=== PATIENT | male | born 1955 | race Caucasian/White ===

== ENCOUNTER 2017-06-20 05:11 | Inpatient (IN) | payer BC, OTHER ==
[2017-05-22 09:56] VITALS: Ht 170.2 cm; Wt 170.0 kg
--- NOTE | 2017-05-22 10:29 | PAT Medication Instructions ---
Service Date May 22, 2017. Current Home Medication List Fluticasone Propionate (Nasal) (Flonase Allergy Relief), 2 SPRAYS INTNAS PRN Medication Instructions For Your Scheduled Surgery - Hold the following medications the morning of surgery: Fluticasone Propionate (Nasal) (Flonase Allergy Relief), 2 SPRAYS INTNAS PRN - Take the following medications as scheduled the night before surgery: Fluticasone Propionate (Nasal) (Flonase Allergy Relief), 2 SPRAYS INTNAS PRN ( if needed) If you have any questions please call us at [phone] or [phone] or [phone]
[2017-05-22 11:08] LABS: BASO % 0.4 %; BASO ABS # 0.03 K/uL (0-0.2); COMPLETE YES; HEMATOCRIT 45.5 % (42-52); IG% 0.3 %; LYMPH % 23.3 %; LYMPH ABS # 1.65 K/uL (1.2-3.4); MEAN CELL VOLUME 92.1 fL (80-100); MEAN CORPUSCULAR HEMOGLOBIN 31.6 pg (25-34); MEAN CORPUSCULAR HGB CONC 34.3 g/dl (32-36); MEAN PLATELET VOLUME 10.7 fL (7.4-10.4); MONO % 9.3 %; NEUT % 64.7 %; PLATELET COUNT 138 K/uL (130-400); RED BLOOD COUNT 4.94 M/uL (4.7-6.1); WHITE BLOOD COUNT 7.07 K/uL (4.8-10.8)
--- NOTE | 2017-05-22 11:15 | DIAGNOSTIC IMAGING REPORT ---
CHEST PREADMISSION(PA/LAT) HISTORY: 62 years-old Male PAT preoperative exam. No acute chest complaints reported COMPARISON: None available TECHNIQUE: PA and lateral views of the chest. FINDINGS: The cardiomediastinal and hilar silhouettes are within normal limits. There is minimal thickening/linear atelectasis of the minor fissure. No pneumothorax, pleural effusion, focal airspace consolidation or overt pulmonary edema. Multilevel endplate degenerative changes of the spine. Degenerative changes are also seen within the shoulders. IMPRESSION: No acute cardiopulmonary process. The above report was generated using voice recognition software. It may contain grammatical, syntax or spelling errors. Electronically signed by: Danyel Chambers M.D. 05/22/2017 11:14 AM Dictated Date/Time: 05/22/2017 11:12 AM
[2017-05-22 11:21] LABS: PARTIAL THROMBOPLASTIN RATIO 1.1; PROTHROMBIN TIME (PATIENT) 10.5 SECONDS (9.0-12.0)
[2017-05-22 13:26] LABS: BUN/CREATININE RATIO 20.4 (10-20); CREATININE 0.73 mg/dl (0.60-1.40); POTASSIUM 4.1 mmol/L (3.5-5.1)
--- NOTE | 2017-06-16 22:54 | HISTORY & PHYSICAL EXAMINATION ---
DATE OF ADMISSION: 06/20/2017 CHIEF COMPLAINT: Right knee pain, discomfort and instability. 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 He has had on and off knee pain for quite some time. He describes gotten worse over the past year. He did have a work related injury back in July 2016 that seem to make things worse. The pain is mostly on the medial side of his knee. Increased with weightbearing. He has become more debilitated with this and having trouble doing his job. He failed conservative treatment and would like to have his right knee fixed. PAST MEDICAL HISTORY: Significant for sleep apnea. 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 ALLERGIES: None. CURRENT MEDICATIONS: None. SOCIAL HISTORY: A 62-year-old male. He is . 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 He does not smoke. No alcohol use. FAMILY HISTORY: Significant for stomach cancer, colon cancer and breast cancer. REVIEW OF SYSTEMS: Negative for diabetes, neurologic problems, vascular problems, bleeding disorders. Denies any chest pain, no shortness of breath. No history of DVT or PE. No known bleeding problems. PHYSICAL EXAMINATION: GENERAL: Physical examination reveals a healthy, pleasant, middle-aged male. He looks to be in good health. HEENT: Benign. NECK: Supple. No lymphadenopathy. LUNGS: Clear to auscultation. HEART: Regular rate and rhythm. ABDOMEN: Soft, nontender, nondistended. EXTREMITIES: Grossly neurovascularly intact except as follows: Examination of the right knee reveals the patient walks independently. He has varus alignment to his knee. He does limp on the right side. He does have a varus thrust with weightbearing. He has bony hypertrophy medially. Small to moderate sized knee effusion. Range of motion is 5-125. No gross instability. No pain with hip motion. X-RAYS: X-rays of the right knee reviewed. It shows advanced right knee DJD. He has complete loss of his medial joint space. He has some tibial femoral subluxation. 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 He has failed conservative treatment and would like to have his right knee replaced. He is not interested in any further conservative care. PLAN: We are going to take him to the operating room and do a right total knee replacement. The risks and benefits of this procedure were explained to the patient including but not limited to DVT, PE, , infection, neurological injury, vascular injury, bleeding problem, pain, limited range of motion, stiffness, failure to relieve symptoms, incomplete relief of symptoms, need for further surgery in the future, fracture, leg length inequality, nerve palsy, persistent pain, etc. The patient understands and desires to proceed. Informed consent was obtained. As far as discharge plans, he is planning to be discharged to home using [facility] home health program.
[~2017-06-20] VITALS: Ht 170.2 cm; Wt 170.0 kg
[2017-06-20] VITALS (9 sets, daily range): BP systolic 100–146; BP diastolic 62–82; PULSE 53–65; TEMP 36.4–36.7; O2SAT 96–100
[~2017-06-20 05:11] MED LIST: FLUT0.15 INTNAS
[2017-06-20] MEDS ORDERED: LACTATED RINGER'S 1000ML IV SCH ×2 (06:00)
[2017-06-20] MEDS ORDERED: METOCLOPRAMIDE HCL 10 MG TAB PO SCH (06:00)
[2017-06-20] MEDS ORDERED: ACETAMINOPHEN 500 MG TAB PO SCH (06:00)
[2017-06-20] MEDS ORDERED: GABAPENTIN 300 MG CAP PO SCH (06:00)
[2017-06-20] MEDS ORDERED: SCOPOLAMINE 1.5 MG TDSY TD SCH (06:00)
[2017-06-20] MEDS ORDERED: LACTATED RINGER'S 500 ML IV SCH (06:00)
[2017-06-20] MEDS ORDERED: CEFAZOLIN 2000MG IV PUSH 10 ML IV SCH (06:00)
[2017-06-20] MEDS ORDERED: TRANEXAMIC ACID INJ 1,000 MG in SYRINGE 0 ML IV SCH (06:00)
[2017-06-20] MEDS ORDERED: FAMOTIDINE 20 MG TAB PO SCH (06:00)
[2017-06-20] MEDS ORDERED: BUPIVACAINE LIPOSOME 266 MG, BUPIVACAINE/EPINEPHRINE INJ 50 ML, SODIUM CHLORIDE 0.9% PF... INFIL SCH ×3 (06:00)
--- NOTE | 2017-06-20 06:27 | History & Physical Bridge Note ---
H&P Re-Evaluation Bridge Note: I have examined the patient, reviewed the History & Physical and in the interval since the performance of the History & Physical I have noted the following changes of clinical significance: No changes noted
[2017-06-20] MEDS ORDERED: BUPIVACAINE 0.5 % 5 MG/1 ML PF 10ML VIAL ONE (06:33)
[2017-06-20] MEDS ORDERED: BUPIVACAINE 0.25% 30 ML VIAL ONE (06:33)
[2017-06-20] MEDS ORDERED: BACITRACIN 50000 UNIT VIAL ONE (06:34)
[2017-06-20] MEDS ORDERED: EpINEphrine INJ 1MG/ML AMP 1 MG/ML AMP ONE (06:34)
[2017-06-20] MEDS ORDERED: BUPIVACAINE/EPINEPHRINE 0.25% 1:200,000 30 ML VIAL ONE (06:34)
[2017-06-20] MEDS ORDERED: SODIUM CHLORIDE 0.9% PF 50 ML VIAL ONE (06:34)
[2017-06-20] MEDS ORDERED: BUPIVACAINE LIPOSOME 1/3% 266 MG/20 ML VIAL INFIL ONE (06:34)
[2017-06-20] MEDS ORDERED: DEXAMETHASONE SOD INJ 4 MG/ML VIAL ONE ×2 (06:34→07:52)
[2017-06-20] MEDS ORDERED: MIDAZOLAM HCL 1 MG/ML 2ML VIAL ONE (06:43)
[2017-06-20] MEDS ORDERED: FENTANYL CITRATE INJ 50 MCG/1 ML 2 ML VIAL ONE (06:43)
[2017-06-20] MEDS ORDERED: PROPOFOL IV EMULSION 10 MG/ML 20 ML VIAL IV ONE (07:52)
[2017-06-20] MEDS ORDERED: ONDANSETRON INJ 2 MG/ML 2 ML VIAL ONE (07:52)
[2017-06-20] MEDS ORDERED: FENTANYL CITRATE INJ 50 MCG/1 ML 2 ML VIAL IV PRN (08:00)
[2017-06-20] MEDS ORDERED: ATROPINE SULFATE 0.1 MG/ML 5ML SYR IV PRN (08:00)
[2017-06-20] MEDS ORDERED: EpHEDrine SULFATE INJ 50 MG/ML AMP IV PRN (08:00)
[2017-06-20] MEDS ORDERED: ONDANSETRON INJ 2 MG/ML 2 ML VIAL IV PRN ×2 (08:00→08:45)
--- NOTE | 2017-06-20 08:39 | [facility] Post Operative Brief Note ---
Immediate Operative Summary Operative Date Jun 20, 2017. Pre-Operative Diagnosis Advanced Right Knee Degenerative Joint Disease Post-Operative Diagnosis Advanced Right Knee Degenerative Joint Disease Procedure(s) Performed Right Total Knee Arthroplasty Surgeon Dr. Dunn Business Services Specialist Sales Surgeon(s) ELA Nunez Estimated Blood Loss 50 ml Findings Right Knee DJD Fluids (cc crystalloids) 1500 cc Specimens A. Right Knee Bone and Tissue Drains None Anesthesia Spinal Complication(s) None Disposition Recovery Room / PACU
[2017-06-20] MEDS ORDERED: DiphenhydrAMINE HCL 50 MG/ML VIAL IV PRN (08:45)
[2017-06-20] MEDS ORDERED: ZOLPIDEM TARTRATE 5 MG TAB PO PRN (08:45)
[2017-06-20] MEDS ORDERED: MoRPHine SULFATE 2 MG/ML CARP IV PRN (08:45)
[2017-06-20] MEDS ORDERED: TAMSULOSIN HCL 0.4 MG CAP PO PRN (08:45)
[2017-06-20] MEDS ORDERED: SILVER SULFADIAZINE 1% CR 50 GM JAR EXT PRN (08:45)
[2017-06-20] MEDS ORDERED: METOCLOPRAMIDE HCL INJ 5 MG/ML 2 ML VIAL IV PRN (08:45)
[2017-06-20] MEDS ORDERED: MAGNESIUM HYDROXIDE SUSP 30 ML UDC PO PRN (08:45)
[2017-06-20] MEDS ORDERED: BISACODYL 10 MG SUPP PR PRN (08:45)
[2017-06-20] MEDS ORDERED: FLUTICASONE PROPIONATE NA SPR 16 GM BTL PRN (08:45)
[2017-06-20] MEDS ORDERED: ALUMINUM/MAGNESIUM/SIMETH (MAALOX MAX) 30 ML UDC PO PRN (08:45)
--- NOTE | 2017-06-20 09:12 | OPERATIVE REPORT ---
DATE OF OPERATION: 06/20/2017 SURGEON: Dr. Art Dunn. ASPHALT MACHINE OPERATOR: ELA Adame PREOPERATIVE DIAGNOSIS: Right knee degenerative joint disease. POSTOPERATIVE DIAGNOSIS: Same. PROCEDURE PERFORMED: Right cemented posterior stabilized total knee arthroplasty. COMPLICATIONS: None. ESTIMATED BLOOD LOSS: 50 mL FLUID REPLACEMENT: 1500 mL crystalloid fluid replacement. TOURNIQUET TIME: 57 minutes at 300 mmHg. ANESTHESIA: Spinal with adductor canal block. DRAINS: None. SPECIMENS: Right knee sent for pathology. 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 He has had a very long history of right knee pain and discomfort. This kind of waxed and waned, but became more persistent and progressive over time to the point that he is having difficulty doing his job. X-rays revealed advanced medial compartment DJD. The patient elected to proceed with operative treatment. OPERATIVE FINDINGS: Operative findings revealed advanced right knee DJD. He had extensive grade 4 changes in the medial femoral condyle and posteromedial tibial plateau. He had 1/4 bit of tibial plateau posteriorly. He had a moderate-sized joint effusion and a fixed varus deformity to his knee. He had some moderate patellofemoral disease, grade 3. He did have some grade 4 areas of the lateral femoral condyle from the tibial femoral subluxation where the intercondylar notch was rubbing into the condyle. OPERATIVE IMPLANTS: Operative implants consisted of: 1. Biomet Vanguard size 70 right posterior stabilized femoral component. 2. Biomet size 71 tibial tray. 3. A 14-mm posterior stabilized polyethylene insert. 4. A 31 x 8 all poly patella. OPERATIVE PROCEDURE: The patient taken to the operating room, identified and placed on the operating table in supine position. All contact areas were appropriately padded. IV antibiotics were provided by the anesthesia team. A spinal anesthetic and adductor canal block had been provided in the holding area. Meyer catheter was placed in sterile fashion. A right thigh tourniquet was then placed and the right lower extremity was then prepped and draped in the usual sterile fashion. The right leg was elevated and exsanguinated with Esmarch and tourniquet was placed at 300 mmHg. An anterior approach to the right knee was then performed through a longitudinal incision centered over the patella. Sharp dissection was carried out through the subcutaneous tissues down to the level of the extensor mechanism. A medial parapatellar arthrotomy incision was made. Some subperiosteal dissection was carried out medially. I did do quite a bit of stripping on the medial and posteromedial tibia due to his varus deformity. The fat pad was resected from beneath the patellar tendon. The lateral patellofemoral ligament was released and the knee was flexed. The osteophytes were taken off the distal femur. The ACL was chronically absent. The PCL was released from the distal femur. The tibia subluxated anteriorly. The external tibial alignment jig was then placed in the anterior face of the tibia and adjusted 16 mm medially. Proximal tibial cut was made to remove about a millimeter of bone from the most deficient aspect of the posteromedial tibial plateau. There was a large cyst in the tibia. We curetted this out. The tibia was sized to a size 71. Some osteophytes were taken off medial and posteromedially. Attention was then drawn to the femur. The distal femur was entered with a sharp drill bit. Intramedullary canal was suctioned. A right 6 degree valgus cutting guide was placed. Distal femoral cutting block was pinned in place. Distal femoral cut was made to take an additional 3 mm of bone off the distal femur. The femur was then sized to a size 70. We did downsize this almost 1 size. The AP cutting block was pinned parallel to the epicondylar axis, which was 3 degrees of external rotation. The anterior cut, anterior chamfer, posterior cut, posterior chamfer cuts were made. Box cutting guide was placed and adjusted slightly lateral and the box cut was made. The knee was flexed. The remnants of the medial and lateral menisci were excised. The osteophytes were taken off the posterior aspect of the femur. Trial femoral component was placed. Tibial tray was pinned in maximum external rotation and the drill and stem punch were used to create defect in proximal tibia for the tibial tray. The knee was then trialed and the 14-mm insert fit most appropriately. Attention was then drawn to the patella. The patella was cleaned of all soft tissues. Patellar thickness measured 24 mm, cut down to 14. It was sized to a size 31 patella. Lug holes were drilled for the 31 patella. Lateral osteophyte was removed. Patella button was placed. Knee was taken through range of motion and patella tracked nicely with no thumbs test. Attention was then drawn toward placement of the permanent component. All trial components were removed. A bone plug was placed in the distal femur to limit blood loss. A double batch of Palacos G cement was mixed. A right size 70 posterior stabilized femoral component, size 71 tibial tray, a 14 mm posterior stabilized polyethylene insert, and a 31 x 8 all poly patella were then cemented in place. Knee was brought out into full extension until cement hardened. A final cement check was then performed. Pericapsular tissues were injected with a total of 100 mL of a combination of 20 mL of Exparel, 30 mL of normal saline, 50 mL of 0.25% Marcaine with epinephrine. The patient did receive 1 gram of tranexamic acid. The tourniquet was then let down for a tourniquet time of 57 minutes. Hemostasis was assured with use of electrocautery. The wound was once again irrigated. The extensor mechanism was then closed with a combination of #1 PDS suture and #1 Vicryl suture in a [id number] fashion. Extensor mechanism was checked and found to be intact. The subcutaneous tissues were then closed with 2-0 Dexon suture in buried interrupted fashion. Skin was closed skin javier. Leg was then cleaned and dried and a sterile dressing of Xeroform, 4 x 4, sterile cast padding and Sebastian bandage were applied. The patient then transferred to the recovery room in stable condition. The patient tolerated the procedure with no complications. All needle and sponge counts were correct at the end of the operation. I attest to the content of the Intraoperative Record and any orders documented therein. Any exception s are noted below.
--- NOTE | 2017-06-20 09:18 | DIAGNOSTIC IMAGING REPORT ---
R KNEE 1 OR 2 VIEWS ROUTINE HISTORY: 62 years-old Male AP/LATERAL IN PACU RIGHT KNEE status post right knee total joint arthroplasty. Degenerative joint disease. COMPARISON: Bilateral knee radiographs 07/20/2016 TECHNIQUE: 2 views of the right knee. FINDINGS: Postoperative changes compatible with recent right knee total joint arthroplasty and patella resurfacing. Anterior midline skin javier are noted as well as expected postsurgical soft tissue swelling and deep tissue air with surgical drain. No acute fracture or dislocation. No postoperative complication identified. Alignment is satisfactory. IMPRESSION: Status post right knee total joint arthroplasty and patellar resurfacing without complication identified. The above report was generated using voice recognition software. It may contain grammatical, syntax or spelling errors. Electronically signed by: Danyel Chambers M.D. 06/20/2017 9:16 AM Dictated Date/Time: 06/20/2017 9:15 AM
--- NOTE | 2017-06-20 09:42 | Anesthesiology Progress Note ---
Anesthesia Post Op Note Date & Time Jun 20, 2017 at 09:41 Vital Signs Pain Intensity: 0 Vital Signs Past 12 Hours Date Time Temp Pulse Resp B/P (MAP) Pulse Ox O2 Delivery O2 Flow Rate FiO2 06/20/17 09:30 54 12 99/60 (65) 99 Nasal Cannula 2 06/20/17 09:20 56 13 99/59 (67) 97 Nasal Cannula 2 06/20/17 09:10 62 20 102/59 100 Nasal Cannula 2 06/20/17 09:00 52 13 103/60 100 Nasal Cannula 2 06/20/17 08:50 54 12 102/56 99 Nasal Cannula 2 06/20/17 08:44 36.7 58 12 98/50 (55) 99 Nasal Cannula 2 06/20/17 05:53 36.7 57 18 128/82 98 Room Air Notes Mental Status: alert / awake / arousable, participated in evaluation Pt Amnestic to Procedure: Yes Nausea / Vomiting: adequately controlled Pain: adequately controlled Airway Patency, RR, SpO2: stable & adequate BP & HR: stable & adequate Hydration State: stable & adequate Neuraxial Anesthesia: was administered, sensory block is resolving Anesthetic Complications: no major complications apparent
[2017-06-20] MEDS: D5W AND 1/2NSS + 20MEQ KCL 1,000 ML IV SCH ×2 (11:11→21:26)
[2017-06-20] MEDS: TAPENTADOL ER 50 MG TABCR PO SCH ×2 (11:13→21:25)
[2017-06-20] MEDS: KETOROLAC TROMETHAMINE 30 MG/ML VIAL IV. SCH ×3 (11:14→23:41)
[2017-06-20] MEDS: FERROUS GLUCONATE 324 MG TAB PO SCH ×2 (12:49→17:53)
[2017-06-20] MEDS: OXYCODONE HCL IR 5 MG TAB (IMMEDIATE RELEASE) PO PRN (12:55)
--- NOTE | 2017-06-20 13:46 | PROGRESS NOTE ---
DATE: 06/20/2017 DATE: 06/20/2017 SUBJECTIVE: A 62-year-old gentleman postop from a right knee replacement. He is doing pretty well. Just starting to get pain and feeling back in his leg. Denies any chest pain or shortness of breath. Not feeling dizzy or lightheaded. OBJECTIVE: VITAL SIGNS: Temperature is 36.7. Vital signs stable. PHYSICAL EXAMINATION: GENERAL: Reveals a pleasant, middle-aged male. He is lying in bed and talking to his spouse and looks pretty comfortable. LUNGS: Clear to auscultation. HEART: Regular rate and rhythm. ABDOMEN: Soft, nontender, nondistended. EXTREMITY EXAMINATION: Grossly neurovascularly intact except as follows: Examination of the right leg reveals the leg to be well aligned. Dressing is clean, dry, and intact. He is able to slightly dorsiflex and plantar flex his foot with strengthening about 1-2 motor strength with extension and probably 2-3 with plantarflexion. He has got brisk refill. X-RAYS: X-rays of the right knee from today are reviewed. It shows a cemented posterior stabilized total knee arthroplasty. The components looked to be in good position. No signs of problems. ASSESSMENT: A 62-year-old gentleman postop from a right knee replacement, doing pretty well. Pain is controlled. His nerve function is just returning. He has a bit weak, but seems to be returning. PLAN: 1. DVT prophylaxis including thigh-high TEDs, SCDs, and aspirin twice a day. 2. PT/OT. Weightbearing as tolerated. Right total knee protocol. 3. Pain control. Doing pretty well with current pain regimen. 4. Disposition. Plan is to discharge him to home with some home health once adequately recovered. 5. IV antibiotics x24 hours.
[2017-06-20] MEDS: CEFAZOLIN IV 2,000 MG in SYRINGE 0 ML IV SCH ×2 (13:54→21:25)
[2017-06-20] MEDS: ACETAMINOPHEN 500 MG TAB PO SCH ×2 (13:55→21:25)
[2017-06-20] MEDS ORDERED: TRANEXAMIC ACID INJ 1,000 MG in SODIUM CHLORIDE 0.9% 100ML 100 ML IV SCH (14:00)
[2017-06-20] MEDS: CHECK SCOPOLAMINE PATCH PLACEMENT SCH ×2 (15:53→23:41)
[2017-06-20] MEDS: DOCUSATE SODIUM 100 MG CAP PO SCH (21:25)
[2017-06-20] MEDS: SENNA 8.6 MG TAB PO SCH (21:25)
[2017-06-20] MEDS: ASPIRIN 325 MG ECTAB PO SCH (21:25)
[2017-06-21] VITALS (7 sets, daily range): BP systolic 103–130; BP diastolic 63–82; PULSE 59–74; TEMP 36.4–37.1; O2SAT 96–98
[2017-06-21] MEDS: D5W AND 1/2NSS + 20MEQ KCL 1,000 ML IV SCH (06:08)
[2017-06-21] MEDS: ACETAMINOPHEN 500 MG TAB PO SCH ×3 (06:08→22:22)
[2017-06-21] MEDS: KETOROLAC TROMETHAMINE 30 MG/ML VIAL IV. SCH ×3 (06:08→18:08)
[2017-06-21 06:33] LABS: HEMATOCRIT 37.6 % (42-52); MEAN CELL VOLUME 92.6 fL (80-100); MEAN CORPUSCULAR HEMOGLOBIN 30.5 pg (25-34); MEAN PLATELET VOLUME 10.5 fL (7.4-10.4); PLATELET COUNT 123 K/uL (130-400); RED BLOOD COUNT 4.06 M/uL (4.7-6.1); WHITE BLOOD COUNT 13.21 K/uL (4.8-10.8)
[2017-06-21 07:05] LABS: BUN/CREATININE RATIO 11.4 (10-20); CALCIUM 8.2 mg/dl (8.5-10.1); CREATININE 0.76 mg/dl (0.60-1.40); POTASSIUM 3.9 mmol/L (3.5-5.1)
[2017-06-21] MEDS: CHECK SCOPOLAMINE PATCH PLACEMENT SCH ×2 (08:05→16:25)
[2017-06-21] MEDS: DOCUSATE SODIUM 100 MG CAP PO SCH ×2 (08:37→21:21)
[2017-06-21] MEDS: FERROUS GLUCONATE 324 MG TAB PO SCH ×3 (08:37→17:47)
[2017-06-21] MEDS: ASPIRIN 325 MG ECTAB PO SCH ×2 (08:38→21:21)
[2017-06-21] MEDS: MULTIVITAMIN TAB PO SCH (08:38)
[2017-06-21] MEDS: PANTOprazole SOD 40 MG TAB PO SCH (08:38)
[2017-06-21] MEDS: TAPENTADOL ER 50 MG TABCR PO SCH ×2 (08:38→21:20)
[2017-06-21] MEDS: OXYCODONE HCL IR 5 MG TAB (IMMEDIATE RELEASE) PO PRN ×2 (08:40→17:47)
--- NOTE | 2017-06-21 09:17 | Clinical Documentation Query ---
His BMI IS NOT 58.7!!!!!! 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 Patient has a BMI of 58.7. In order for coders to capture the BMI, obesity must be documented in the patient record. In your clinical opinion is this patient being managed for: ( ) Obesity ( x ) Not Agree ( ) Other explanation of clinical findings (Please Explain) ( ) Unable to determine (Please Define) ( ) Need to Discuss The medical record reflects the following clinical findings, treatment, and risk factors. Clinical Indicators: BMI 58.7 Treatment: Diet, I&O Risk Factors: S/P surgical intervention, ambulation Please clarify and document your clinical opinion in the progress notes and discharge summary. Terms such as "probable", "suspected", "likely", "questionable", "possible", or "still to be ruled out" are acceptable. IF IN AGREEMENT, YOU MUST DOCUMENT ABOVE DIAGNOSTIC STATEMENT IN DAILY PROGRESS NOTES AND DISCHARGE SUMMARY. This document is not part of the patient's record. Thank You, Donna Guerrero RN [phone]
--- NOTE | 2017-06-21 13:09 | PROGRESS NOTE ---
DATE: 06/21/2017 SUBJECTIVE: This is a 62-year-old gentleman postop from a right knee replacement. He is doing pretty well. It is painful, but manageable. No chest pain or shortness of breath. Not feeling dizzy or lightheaded. OBJECTIVE: VITAL SIGNS: Temperature 36.6. Vital signs stable. GENERAL: Reveals a healthy, pleasant, middle-aged male. He was walking to the bathroom when I visited him this morning. LUNGS: Clear to auscultation. HEART: Regular rate and rhythm. ABDOMEN: Soft, nontender, nondistended. EXTREMITIES: Grossly neurovascularly intact except as follows. Examination of the right lower extremity reveals the dressing to be clean, dry, and intact. He can dorsiflex and plantarflex his foot appropriately. He is neurologically intact. LABORATORY DATA: Hemoglobin is 12.4. Hematocrit 37.6. White cell count 13.21. ASSESSMENT: A 62-year-old gentleman postop day 1 from right knee replacement, doing pretty well. Pain is adequately controlled. PLAN: 1. DVT prophylaxis including thigh-high TEDs, SCDs, and aspirin twice a day. 2. PT/OT. Weightbearing as tolerated. Right total knee protocol. 3. Pain control, doing pretty well with current pain regimen. 4. Disposition: Plan to discharge to home likely with some home health once adequately recovered.
--- NOTE | 2017-06-21 14:17 | Anesthesiology Progress Note ---
Anesthesia Post Op Note Date & Time Jun 21, 2017 at 14:16 Vital Signs Vital Signs Past 12 Hours Date Time Temp Pulse Resp B/P (MAP) Pulse Ox O2 Delivery O2 Flow Rate FiO2 06/21/17 11:29 36.6 62 18 122/68 (86) 98 Room Air 06/21/17 11:06 59 06/21/17 08:19 98 Room Air 06/21/17 07:45 36.4 61 19 130/82 (98) 98 Room Air 06/21/17 07:10 Room Air 06/21/17 03:55 36.9 74 18 103/64 (77) 97 Room Air Notes Mental Status: alert / awake / arousable, participated in evaluation Pt Amnestic to Procedure: Yes Nausea / Vomiting: adequately controlled Pain: adequately controlled Airway Patency, RR, SpO2: stable & adequate BP & HR: stable & adequate Hydration State: stable & adequate Neuraxial Anesthesia: was administered, sensory block resolved Anesthetic Complications: no major complications apparent
[2017-06-21] MEDS ORDERED: ACET-24 PO (16:48)
[2017-06-21] MEDS ORDERED: RXC5 PO (16:48)
[2017-06-21] MEDS ORDERED: ASPEC325 PO (16:48)
--- NOTE | 2017-06-21 16:51 | Discharge Instructions ---
Discharge Instructions Date of Service Jun 21, 2017. Admission Reason for Admission: Right Knee Degenerative Joint Disease Discharge Discharge Diagnosis / Problem: Right Knee Replacement Discharge Goals Goal(s): Decrease discomfort, Improve function, Increase independence, Improve disease control, Therapeutic intervention Activity Recommendations Activity Limitations: per Instructions/Follow-up section Weightbearing Status: Right weightbearing . Instructions / Follow-Up Instructions / Follow-Up ACTIVITY RECOMMENDATIONS: Physical Therapy: * You will go to physical therapy three times each week for four to six weeks after your surgery in order to regain your knee range of motion and to retrain your knee to work properly. * It is just as important to make sure you are getting your knee perfectly straight as it is to regain your knee bend. * Taking a pain pill an hour before therapy can help you have a more productive and comfortable therapy session. Home Exercise: * You were shown a series of exercises (heel props, heel slides, etc.) in the hospital. Do these exercises three to four times each day including the exercises you were shown in physical therapy. Walking: * Get up and walk several times each day. For the first four weeks, try not to stand or walk for more than one hour at a time. If you do stand or walk for more than one hour, you will not hurt anything, but your knee and leg will likely swell. * As you feel comfortable, you may change from the walker or crutches to a cane and then to independent walking. MEDICATIONS: New Medicine: * You will likely be taking one or more of these medications: 1. Oxycodone - A quick and shorter-acting pain medication. Take one to two tablets every four to six hours to lessen your pain. 2. Aspirin - Thins your blood to lessen the chance of forming a blood clot. * The most common side effects of pain medicine and iron are nausea and constipation. If nausea or constipation is too much of a problem or if you have any questions about your new medicines or doses, call [facility] at . We will try to help you manage these issues. VERY IMPORTANT TO READ AND REVIEW" Pain: * The immediate post-operative period after knee replacement surgery is often quite painful. * You are given a prescription for pain medicine. You should take it, as directed, when you need it, especially before physical therapy and before going to bed. Pain that interferes with sleep is very common and can last several months. * You will likely need pain medicine for the first four to six weeks. It will not stop all of the pain. The pain will lessen and as you feel better, you may change to milder pain medicine such as Tylenol. * The most common side effects of pain medicine are nausea and constipation, so don't take more than you need. SPECIAL CARE INSTRUCTIONS: TEDs/Elastic Stockings: * The white elastic stockings help limit swelling and prevent blood clots from forming in your legs. The more you wear them, the more they work. * Wear them for six weeks after knee replacement surgery and four weeks after partial knee replacement. Prevention of Infection: * Take antibiotics one hour before any dental cleaning, dental work, urological procedure, gastrointestinal procedure or any invasive surgery in order to prevent your new joint from getting infected. * You may get the antibiotics from the doctor performing the procedure or you may call our office at before and we will call in a prescription to the pharmacy of your choice. Things to Watch For: * Drainage from the incision site that occurs more than one week after your surgery. * Severely increased knee/leg pain or swelling. * Increased redness at the incision site. * Fever above 102 degrees Fahrenheit. * Unusual chest pain or shortness of breath. * Unusual pain or burning with urination. Call [facility] at with any of the above problems or if you have any questions about your medicines or recovery. FOLLOW UP VISIT: Make an appointment to see your doctor for approximately two weeks after surgery for a progress check and staple removal by calling the office at . Current Hospital Diet Patient's current hospital diet: Regular Diet Discharge Diet Recommended Diet: Regular Diet Procedures Procedures Performed: Right Total Knee Arthroplasty Pending Studies Studies pending at discharge: no Medical Emergencies . Who to Call and When: Medical Emergencies: If at any time you feel your situation is an emergency, please call [phone] immediately. . Non-Emergent Contact Non-Emergency issues call your: Surgeon . "Provider Documentation" section prepared by Art Dunn. . VTE Core Measure Inpt VTE Proph given/why not?: Other Anticoagulation, T.E.D. Stockings, SCD's
[2017-06-21] MEDS: SENNA 8.6 MG TAB PO SCH (21:20)
[2017-06-22] MEDS: KETOROLAC TROMETHAMINE 30 MG/ML VIAL IV. SCH ×2 (00:38→05:34)
[2017-06-22] MEDS: OXYCODONE HCL IR 5 MG TAB (IMMEDIATE RELEASE) PO PRN ×3 (00:54→12:43)
[2017-06-22] MEDS: ACETAMINOPHEN 500 MG TAB PO SCH ×2 (05:35→13:35)
[2017-06-22 06:31] VITALS: BP 122/80; PULSE 77; TEMP 36.8; O2SAT 98
[2017-06-22] MEDS: CHECK SCOPOLAMINE PATCH PLACEMENT SCH ×2 (07:12)
[2017-06-22] MEDS: ASPIRIN 325 MG ECTAB PO SCH (07:25)
[2017-06-22] MEDS: PANTOprazole SOD 40 MG TAB PO SCH (07:25)
[2017-06-22] MEDS: FERROUS GLUCONATE 324 MG TAB PO SCH ×2 (07:25→12:42)
[2017-06-22] MEDS: DOCUSATE SODIUM 100 MG CAP PO SCH (07:25)
[2017-06-22] MEDS: MULTIVITAMIN TAB PO SCH (07:25)
[2017-06-22] MEDS: TAPENTADOL ER 50 MG TABCR PO SCH (07:26)
--- NOTE | 2017-06-22 07:59 | PROGRESS NOTE ---
DATE: 06/22/2017 DATE: 06/22/2017 SUBJECTIVE: A 62-year-old gentleman postop day 2 from right knee replacement. He is doing pretty well. Pain seems to be better this morning. No chest pain or shortness of breath. Not feeling dizzy or lightheaded. OBJECTIVE: VITAL SIGNS: Temperature 36.8. Vital signs stable. PHYSICAL EXAMINATION: GENERAL: Reveals a pleasant, middle-aged male. He is sitting up in her bedside chair eating breakfast. Looks pretty comfortable. EXTREMITIES: Examination of the right leg reveals the dressing to be clean, dry and intact. No significant drainage. Calf is soft and supple. He is neurologically intact. ASSESSMENT: A 62-year-old gentleman postop day 2 from right knee replacement, doing pretty well. Pain seems to be a bit better today. PLAN: 1. DVT prophylaxis including thigh-high TEDs, SCDs, and aspirin twice a day. 2. PT/OT. Weight bear as tolerated. Right total knee protocol. 3. Pain control. Doing pretty well with current pain regimen. 4. Disposition. Plan to discharge to home with some home health later today.
[2017-06-22 10:21] VITALS: BP 122/80; PULSE 77; TEMP 36.8; O2SAT 98
--- NOTE | 2017-06-26 17:21 | DISCHARGE SUMMARY ---
ADMITTING PHYSICIAN AND SURGEON: Dr. Dunn. ADMITTING DIAGNOSIS: Right knee degenerative joint disease. SURGERY PERFORMED: Right total knee arthroplasty. SECONDARY DIAGNOSIS: Sleep apnea. CONSULTS: None obtained. HISTORY AND PHYSICAL EXAMINATION: Well documented in the patient's chart. HOSPITAL COURSE: The patient was admitted on 06/20/2017 and underwent total knee arthroplasty. He tolerated the procedure well. There were no complications. He was transferred to the PACU postoperatively and later to the orthopedic floor for further care. He was given Ancef for antibiotic prophylaxis and MARGAUX stockings, SCDs and aspirin for DVT prophylaxis. Hemoglobin, hematocrit and vital signs were monitored during his hospital stay and remained stable. He did not require any blood transfusions. There were no complications. By postoperative day #2, he was tolerating a regular diet. Pain was controlled with oral pain medicine. He was participating in physical therapy and had no signs or symptoms of deep vein thrombosis. On postoperative day #2, he was discharged home and set up with home health services. He was given printed discharge instructions including new prescriptions for extra strength Tylenol, aspirin 325 mg b.i.d. and oxycodone. Continue his home medications, continue physical therapy, and weightbearing as tolerated. MARGAUX stockings and follow up in 10-12 days or sooner if there are any problems or concerns.
== END 2017-06-22 14:01 | disposition home health service (06) | DRG 470 ==
LOC: C.ACU 05:11 → C.3E 06:10 → ENRESERV 09:45
PROVIDERS: ADMIT Orthopaedic Surgery Sports Medicine; ATTEND Orthopaedic Surgery Sports Medicine
PROC: 0SRC0J9 Replacement of Right Knee Joint with Synthetic Substitute, Cemented, Open Approach (ICD-10-PCS; principal; 2017-06-20 07:00)
DX: M17.11 Unilateral primary osteoarthritis, right knee (principal); Z80.0 Family history of malignant neoplasm of digestive organs; Z80.3 Family history of malignant neoplasm of breast

== ENCOUNTER 2024-10-07 08:45 | Observation (INO) ==
--- NOTE | 2024-09-04 15:44 | PAT Medication Instructions ---
Medication Instructions Date of Service September 04, 2024 Home Medications amoxicillin 500 mg capsule 2,000 mg PO UD PRN dental procedures fluticasone propionate 50 mcg/actuation nasal spray,suspension 1 spray intranasal UD PRN congestion/allergy symptoms flaxseed oil 1,000 mg capsule 0 mg PO DAILY glycerin 1 drp ophthalmic (eye) UD PRN Dry Eyes multivitamin 1 tab PO DAILY Continue as directed amoxicillin 500 mg capsule 2,000 mg PO UD PRN dental procedures STOP taking 2 weeks before surgery (or as soon as possible if surgery is within 2 weeks) flaxseed oil 1,000 mg capsule 0 mg PO DAILY DO NOT take the morning of surgery multivitamin 1 tab PO DAILY Take morning of surgery With a small sip of water, OTHERWISE NOTHING TO EAT OR DRINK AFTER MIDNIGHT: fluticasone propionate 50 mcg/actuation nasal spray,suspension 1 spray intranasal UD PRN congestion/allergy symptoms (if needed) glycerin 1 drp ophthalmic (eye) UD PRN Dry Eyes (if needed) Take evening before surgery fluticasone propionate 50 mcg/actuation nasal spray,suspension 1 spray intranasal UD PRN congestion/allergy symptoms (if needed) glycerin 1 drp ophthalmic (eye) UD PRN Dry Eyes (if needed) Other Notes If you have any questions please call us at [phone] or [phone] or [phone] or [phone]
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
[~2024-10-07 08:45] MED LIST changes: -FLUT0.15 INTNAS; +ROPIVACAINE 0.5% 5 MG/ML 30 ML VIAL ONE
--- NOTE | 2024-10-07 08:55 | History & Physical Bridge Note ---
Date of Service October 07, 2024 History & Physical Bridge Note I have examined the patient, reviewed the History & Physical and in the interval since the performance of the History & Physical I have noted the following changes of clinical significance: no changes noted
[2024-10-07] MEDS: LR 60ML/HR IV SCH (09:36)
[2024-10-07] MEDS: LR 500ML BOLUS, THEN 15ML/HR IV SCH (09:36)
[2024-10-07] MEDS: ACETAMINOPHEN 500 MG TAB PO SCH ×2 (09:37→17:12)
[2024-10-07] MEDS: CeleBREX 200 MG CAP PO SCH (09:37)
[2024-10-07] MEDS: METOCLOPRAMIDE HCL 10 MG TABLET PO SCH (09:38)
[2024-10-07] MEDS: dexAMETHasone**PF** 10 MG/ML VIAL IV SCH (09:38)
[2024-10-07] MEDS: FAMOTIDINE 20 MG TAB PO SCH (09:38)
[2024-10-07] MEDS ORDERED: fentaNYL citrate PF 100 MCG/2 ML VIAL ONE (09:47)
[2024-10-07] MEDS ORDERED: MIDAZOLAM HCL 1 MG/ML 2ML VIAL ONE (09:47)
[2024-10-07] MEDS ORDERED: PROPOFOL IV EMULSION 10 MG/ML 100 ML VIAL IV ONE ×2 (09:57)
[2024-10-07] MEDS ORDERED: PROPOFOL IV EMULSION 10 MG/ML 20 ML VIAL IV ONE ×3 (09:58→12:50)
[2024-10-07] MEDS ORDERED: ePHEDrine sulfate 50 MG/ML AMP IV PRN (10:14)
[2024-10-07] MEDS ORDERED: HYDROmorphone INJ 1 MG/ML SYRINGE IV PRN (10:14)
[2024-10-07] MEDS ORDERED: KETOROLAC 30 MG/ML VIAL IV PRN (10:14)
[2024-10-07] MEDS ORDERED: ATROPINE SULFATE 0.1 MG/ML 10ML SYR IV PRN (10:14)
[2024-10-07] MEDS: ceFAZolin 2000MG 2,000 MG/15 ML SYR IV SCH ×2 (11:42→20:22)
[2024-10-07] MEDS ORDERED: KETAMINE HCL 10MG/ML SYR ONE (11:47)
[2024-10-07] MEDS: ROPIV 0.5% 246mg, Ketorolac 30mg, EPINEPHrine 0.5mg in NSS INFIL SCH (12:15)
[2024-10-07] MEDS: ORTHO JOINT ANESTHETIC ONE (12:16)
[2024-10-07] MEDS: TRANEXAMIC ACID 1,000 MG **IV Pre-op IV SCH (12:28)
[2024-10-07] MEDS ORDERED: DEXAMETHASONE SOD INJ 4 MG/ML VIAL ONE (12:30)
[2024-10-07] MEDS ORDERED: ONDANSETRON INJ 2 MG/ML 2 ML VIAL ONE (12:31)
--- NOTE | 2024-10-07 13:26 | Operative Report ---
PG Post Operative Report Pre & Post Diagnosis Operation Date: 10/07/24 10:40 Pre-Op Diagnosis: Left Knee Degenerative Joint Disease Post-Op Diagnosis: Left Knee Degenerative Joint Disease I identified the patient and participated in the time-out.: Yes Procedure Operation Date: 10/07/24 10:40 Actual Procedures p Left Total Knee Arthroplasty(Left) - Art Dunn MD Surgeon Art Dunn MD Seed Specialist CARYL Lantigua Estimated Blood Loss 50 Findings Consistent with Post-Op Diagnosis Specimens Left knee sent for pathology. Anesthesia Type Spinal MAC Complications none Disposition Accompanied Patient To Recovery: No Indications The patient is a 69 very active gentleman whose had a host of orthopedic issues over the years. He had his right knee replaced several years ago. Became more disabled by left knee pain and discomfort is times brought on. He is failed conservative measures. X-rays show advanced left knee DJD. He elected proceed with surgical treatment/knee replacement. Description of Procedure Operative implants consists of: 1 Biomet Vanguard size 70 left posterior stabilized femoral component. 2. Biomet size 75 tibial tray. 3. 12 mm posterior stabilized polyethylene insert. 4. 34 x 8-1/2 all poly patella. The patient was taken the op room, identified, placed on the operating table in the supine position. All contact areas were appropriately padded. IV antibiotics were provided by the anesthesia team. A spinal anesthetic and adductor canal block had been provided in the holding area. A left thigh turn was then placed. Left lower extremity was then prepped and draped in usual sterile fashion. The left leg was elevated and exsanguinated with use of an Esmarch and a turn was placed at 300 mmHg. An anterior approach left knee was then performed to longitudinal incision centered over the patella. Sharp dissection was got through subcutaneous tissue down the extensor mechanism. A medial parapatellar arthrotomy incision was made. Some subperiosteal dissection was carried out medially. The fat pad was resected from Neath patella tendon. Lateral patellofemoral ligament was released. Patella subluxated laterally and the knee was flexed. The osteophytes taken on distal femur. The ACL and PCL were then released the distal femur and the tibia subluxated anteriorly. The external treatment LYMErix then placed on the anterior face the tibia adjusted 14 mm medially. The proximal tibial cut was made remove out of millimeter bone from most efficient aspect medial tibial plateau. Some osteophytes taken off medial and posterior medially. The tibia sized to a size 75. Attention drawn the femur. The distal femur examined the sharp drop with intramedullary canal was suction. A left 6 degree valgus cutting guide was placed. The distal femoral cut block was pinned in place. The distal femoral cut was made to take an additional 3 mm of bone off distal femur. The femur was then sized to a size 70. The AP cutting block was pinned parallel to the epicondylar axis which was 5 degrees of external rotation. The anterior cut, anterior chamfer, posterior cut, posterior chamfer cuts were made. The box cutting guide was placed and just slight lateral box cut was made. The knee was flexed. The remnants of the medial and lateral menisci were excised. The osteophytes taken off the posterior aspect the femur. A trial femoral component was placed. The tibial tray was pinned in Kim external rotation and the drill and stem punch used. Defect in proximal tibia for the tibial tray. The knee was then trialed and the 12 mm insert fit most appropriately. Attention drawn the patella. The patella was cleaned of all soft tissue. Patella thickness measured 21 mm in thickness was cut down to 13. Was sized to a size 34 patella. The lug holes were drilled for 34 patella. The lateral osteophytes removed. Patella button was placed. Knee was taken through range of motion patella tracked nicely with no thumbs test. Attention drawn to placement permanent components. All trial components were removed. Bone plug was placed in the distal femur limit blood loss. Double batch Palacos G cement was mixed. A Biomet Vanguard size 70 left posterior stabilized femoral component, size 75 tibial tray, a 12 mm posterior stabilized polyethylene insert, and a 34 x 8 and half all poly patella then cemented in place. The knee was brought out into full extension till cement hardened. Final cement check was then performed. The pericapsular tissues were injected with total of 100 cc of Ortho mix. The patient did re ceive 1 g of tranexamic acid. The tourniquet was then let down for tourniquet time of 53 minutes. Hemostasis assured use electrocautery. Extensor Meclomen then closed with combination 1 PDS suture and #1 Vicryl suture in a [id number] fashion. Extensor Meclomen checked found be intact. Subcutaneous tissue then closed with 2 Dexon suture in a buried interrupted fashion and the skin was closed skin javier. Leg was then cleaned and dried and a sterile dressing with Xeroform, 4 fours, sterile cast padding, Sebastian bandage were applied. The patient was then transferred to the recovery room in stable condition. Patient tolerated the procedure well and there were no complications. Moreno Lantigua, my physician assistant grocery, was present for the entire procedure. His assistance was essential and required for appropriate patient positioning, prepping and draping, surgical exposure, performing the technical details of the operation, placement the implants, closure of the wound, and placement of the sterile bandage. I attest to the content of the Intraoperative Record and any orders documented therein. Any exceptions are noted below.
--- NOTE | 2024-10-07 13:46 | XRay Report ---
XR knee LT 1 or 2V routine CLINICAL HISTORY: Surgical Post Op COMPARISON: None FINDINGS: Left knee prosthesis shows no hardware complication. There is expected soft tissue gas. Sk in javier are present. IMPRESSION: Unremarkable postoperative exam. ACT 112: Negative or not required by law. Electronically signed by: Wayne Platt M.D. 10/07/2024 1:45 PM
--- NOTE | 2024-10-07 14:37 | Anesthesiology Progress Note ---
Date of Service October 07, 2024 Anesthesia Post Procedure Vital Signs Vital Signs: Temp Pulse Resp BP BP Pulse Ox O2 Del Method 10/07/24 14:30 67 12 118/65 94 Room Air 10/07/24 14:20 70 13 124/67 95 Room Air 10/07/24 14:10 67 15 119/67 94 Room Air 10/07/24 14:00 36.5 C 73 16 109/69 98 Room Air 10/07/24 13:50 74 14 108/64 94 Room Air 10/07/24 13:40 75 18 113/67 97 Nasal Cannula 10/07/24 13:30 78 13 108/69 95 Nasal Cannula 10/07/24 13:21 36.4 C L 92 H 16 112/61 95 Nasal Cannula 10/07/24 09:09 36.5 C 21 122/77 99 Room Air O2 Flow Rate 10/07/24 14:30 0 10/07/24 14:20 0 10/07/24 14:10 0 10/07/24 14:00 0 10/07/24 13:50 0 10/07/24 13:40 2 10/07/24 13:30 2 10/07/24 13:21 2 10/07/24 09:09 Transfer of Care Handoff Completed per policy Notes Mental Status: alert / awake / arousable and participated in evaluation Nausea / Vomiting: adequately controlled Pain: adequately controlled Airway Patency, RR, SpO2: stable & adequate BP & HR: stable & adequate Hydration State: stable & adequate Neuraxial Anesthesia: was administered and sensory block is resolving Anesthetic Complications: no major complications apparent and Pt Satisfied with anesthetic care
[2024-10-07] MEDS ORDERED: MAGNESIUM HYDROXIDE SUSP 30 ML UDC PO PRN (15:02)
[2024-10-07] MEDS ORDERED: METOCLOPRAMIDE HCL INJ 5 MG/ML 2 ML VIAL IV PRN (15:02)
[2024-10-07] MEDS ORDERED: FLUTICASONE PROPIONATE NA SPR 16 GM BTL NAE PRN (15:02)
[2024-10-07] MEDS ORDERED: ALUMINUM/MAGNESIUM SUSP 30 ML UDC PO PRN (15:02)
[2024-10-07] MEDS ORDERED: GLYCERIN OP PRN (15:02)
[2024-10-07] MEDS ORDERED: bisacodyL 10 MG SUPP PR PRN (15:02)
[2024-10-07] MEDS ORDERED: NALOXONE HCL 0.4 MG/1 ML VIAL/CARP IV PRN (15:02)
[2024-10-07] MEDS ORDERED: ONDANSETRON INJ 2 MG/ML 2 ML VIAL IV PRN (15:02)
[2024-10-07] MEDS ORDERED: HYDROmorphone INJ 0.5 MG/0.5 ML SYR IV PRN (15:02)
[2024-10-07] MEDS: KETOROLAC TROMETHAMINE 15 MG/ML VIAL IV SCH (17:13)
[2024-10-07] MEDS: ASCORBIC ACID 500 MG TAB PO SCH (18:17)
[2024-10-07] MEDS: SENNA 8.6 MG TAB PO SCH (20:21)
[2024-10-07] MEDS: DOCUSATE SODIUM 100 MG CAP PO SCH (20:21)
[2024-10-07] MEDS: oxyCODONE HCL IR 5 MG TAB (IMMEDIATE RELEASE) PO PRN (20:21)
[2024-10-07] MEDS: TRANEXAMIC ACID / 0.7% NACL 1,000 MG/100 ML BAG IV SCH (20:23)
[2024-10-07] MEDS: ASPIRIN 81 MG ECTAB PO SCH (20:23)
[2024-10-07] MEDS ORDERED: SENNA 8.6 MG TAB PO SCH (21:00)
--- NOTE | 2024-10-08 06:35 | Orthopedic Progress Note ---
Date of Service October 08, 2024 Assessment & Plan (1) Status post total left knee replacement: [place] controlled PT/OT, wbat Dvt prophylaxis: teds, scd's, aspirin d/c planning: home with home health today after therapy Subjective .69 year old patient POD 1 from left tka. Did not sleep very well last night. Pain controlled. No other complaints. Review of Systems All systems reviewed & are unremarkable except as noted in HPI & below. Physical Exam .alert and oriented. NAD. VSS Left leg: dressing clean, dry, intact. Able to lift leg, plantar flex, dorsi flex. NVI Results & Data Results & Data Laboratory Results . Diagnostic Findings . PG Care Time/CCT Total # of Minutes Spent Total Time Spent with Patient: Total time spent is greater than 50% in coordination of care (as documented) at patient's floor/unit and/or counseling patient: Coding Level of Care Code 37062 Post Operative Follow-Up Diagnoses Status post total left knee replacement Z96.652
[2024-10-08] MEDS: dexAMETHasone 10 MG in SYRINGE 0 ML IV SCH (07:04)
[2024-10-08 07:45] LABS: Hematocrit (blood only) 38.5 % (42.0-52.0); Hemoglobin 13.2 g/dl (14.0-18.0); Mean Corpuscular Hemoglobin 31.4 pg (25.0-34.0); Mean Corpuscular Hgb Conc 34.3 g/dL (32.0-36.0); Mean Corpuscular Volume 91.4 fL (80.0-100.0); Mean Platelet Volume 11.2 fL (9.4-12.4); Platelet Count 148 K/uL (130-400); RDW Coefficient of Variation 12.3 % (11.5-14.5); RDW Standard Deviation 41.1 fL (36.4-46.3); Red Blood Count 4.21 M/uL (4.70-6.10); White Blood Count 17.27 K/ul (4.8-10.8)
[2024-10-08 08:07] LABS: Calcium 8.5 mg/dl (8.6-10.3); Potassium 3.9 mmol/L (3.5-5.1)
[2024-10-08] MEDS: MULTIVITAMIN TAB PO SCH (08:08)
[2024-10-08] MEDS: TAMSULOSIN HCL 0.4 MG CAP PO SCH (08:09)
[2024-10-08 08:13] LABS: Creatinine Clr Calc Pharmacy 83.3 ml/min
[2024-10-08] MEDS ORDERED: NON-FORMULARY MEDICATION (Flaxseed Oil 1,000 mg Capsule) PO SCH (09:00)
[2024-10-08] MEDS ORDERED: NON-FORMULARY MEDICATION (Multivitamin Tablet,Chewable) PO SCH (09:00)
== END 2024-10-08 11:22 | disposition home health service (06) ==
LOC: 3E 08:45 → ASU 08:45